=== PATIENT | female | born 1955 | race African-American/Black ===

== ENCOUNTER 2019-10-03 10:08 | Inpatient (IN) | payer MEDICARE, MEDICAID ==
[~2019-10-03] VITALS: Ht 157.5 cm; Wt 81.6 kg
[2019-10-03] MEDS ORDERED: METHYLPREDNISOLONE SOD SUCC 125 MG/2 ML VIAL IV STA (10:36)
[2019-10-03] MEDS ORDERED: IPRATROPIUM BROMIDE (0.02%) 0.5MG/2.5ML NEB HHN STA (10:36)
[2019-10-03] MEDS ORDERED: ALBUTEROL (0.083%) 2.5MG/3ML NEB HHN STA (10:36)
[2019-10-03 11:31] LABS: BG BASE EXCESS -3.8 mmol/L (-2.0-2.0); BG CARBOXYHEMOGLOBIN 0.2 % (0.5-1.5); BG FRACTION INSPIRED OXYGEN 28; BG HCO3 ACT 19.1 mmol/L (22.0-26.0); BG METHEMOGLOBIN 0.1 % (0.0-1.5); BG OXYHEMOGLOBIN 94.7 % (94.0-97.0); BG PCO2 27.8 mmHg (35.0-45.0); BG PH 7.455 (7.350-7.450); BG PO2 70.9 mmHg (75.0-100.0); BG SAMPLE SITE RIGHT RADIAL; BG TOTAL HEMOGLOBIN 10.2 g/dL (12.0-18.0); BG VENT MODE NASAL CANNULA
[2019-10-03 12:24] LABS: BASOPHILS % 0.8 % (0.0-2.0); EOSINOPHILS % 0.9 % (0.0-5.0); HEMATOCRIT. 35.2 % (36.0-48.0); HEMOGLOBIN. 11.3 g/dL (12.0-16.0); LYMPHOCYTES % 23.8 % (20.0-50.0); MEAN CORPUSCULAR HEMOGLOBIN 28.2 pg (28.0-32.0); MEAN CORPUSCULAR VOLUME 88.1 fL (81.0-99.0); MEAN PLATELET VOLUME 8.6 fl (7.4-10.4); MONOCYTES % 12.4 % (2.0-8.0); NEUTROPHILS % 62.1 % (40.0-76.0); PLATELET 200 x1000/uL (130-400); RED CELL DISTRIBUTION WIDTH 18.2 % (11.6-14.6)
[2019-10-03 12:29] LABS: CHLORIDE 111 mEq/L (98-107)
[2019-10-03] MEDS ORDERED: FUROSEMIDE 40MG/4ML VIAL IVP ONE (12:45)
[2019-10-03] MEDS ORDERED: IPRATROPIUM/ALBUTEROL 0.5-3(2.5)MG/3ML NEB HHN PRN (13:45)
[2019-10-03] MEDS ORDERED: ONDANSETRON HCL 4MG/2ML INJ IV PRN (13:45)
[2019-10-03 20:13] VITALS: BP 115/79
[2019-10-03 20:15] VITALS: BP 115/79
[2019-10-03] MEDS: METHYLPREDNISOLONE SOD SUCC 40 MG/ML VIAL IV SCH (23:00)
[2019-10-03] MEDS: ACETAMINOPHEN 325MG TABLET PO PRN (23:00)
[2019-10-03] MEDS ORDERED: DEXTROSE 50% WATER 50ML SYRINGE IV PRN (23:30)
[2019-10-03] MEDS: BLOOD SUGAR DIAGNOSTIC STRIP TEST SCH (23:35)
[2019-10-03] MEDS: INSULIN LISPRO 100 UNITS/ML SUBCUT SCH (23:44)
[2019-10-04] VITALS: BP 118/76
[2019-10-04] MEDS: IPRATROPIUM/ALBUTEROL 0.5-3(2.5)MG/3ML NEB HHN SCH ×6 (01:51→20:52)
[2019-10-04 04:00] VITALS: BP 128/81
[2019-10-04] MEDS: METHYLPREDNISOLONE SOD SUCC 40 MG/ML VIAL IV SCH ×2 (06:33→14:00)
[2019-10-04] MEDS: BLOOD SUGAR DIAGNOSTIC STRIP TEST SCH ×4 (06:33→20:18)
[2019-10-04] MEDS: INSULIN LISPRO 100 UNITS/ML SUBCUT SCH ×4 (06:34→20:32)
[2019-10-04 07:04] LABS: BASOPHILS % 0.2 % (0.0-2.0); HEMOGLOBIN. 10.6 g/dL (12.0-16.0); LYMPHOCYTES % 9.2 % (20.0-50.0); MEAN CORPUSCULAR VOLUME 87.5 fL (81.0-99.0); MEAN PLATELET VOLUME 9.2 fl (7.4-10.4); MONOCYTES % 3.1 % (2.0-8.0); NEUTROPHILS % 87.5 % (40.0-76.0); PLATELET 224 x1000/uL (130-400); RED BLOOD CELL COUNT 3.77 mill/uL (4.2-5.4); RED CELL DISTRIBUTION WIDTH 17.5 % (11.6-14.6)
[2019-10-04 07:15] LABS: CLARITY URINE CLEAR (CLEAR); COLOR URINE YELLOW (YELLOW); KETONES URINE NEGATIVE (NEGATIVE); LEUKOCYTE ESTERASE URINE NEGATIVE (NEGATIVE); NITRITE URINE NEGATIVE (NEGATIVE); OCCULT BLOOD URINE NEGATIVE (NEGATIVE); PROTEIN URINE NEGATIVE (NEGATIVE); SPECIFIC GRAVITY URINE 1.027 (1.005-1.030); UROBILINOGEN URINE 0.2 E.U./dL (0.2-1.0)
[2019-10-04 07:37] LABS: *AMPHETAMINES SCREEN URINE NEGATIVE (NEGATIVE); *BARBITURATES SCREEN URINE NEGATIVE (NEGATIVE); *BENZODIAZEPINES SCREEN URINE NEGATIVE (NEGATIVE); *COCAINE SCREEN URINE NEGATIVE (NEGATIVE)
[2019-10-04 07:38] LABS: CANNABINOID URINE SCREEN NEGATIVE (NEGATIVE); METHADONE URINE SCREEN NEGATIVE (NEGATIVE); OPIATES URINE SCREEN PRESUMTIVE POSITIVE (NEGATIVE); PHENCYCLIDINE URINE SCREEN NEGATIVE (NEGATIVE)
[2019-10-04 08:00] VITALS: BP 137/75
[2019-10-04] MEDS ORDERED: ENOXAPARIN 40MG/0.4ML SYR SUBCUT SCH (09:00)
[2019-10-04] MEDS ORDERED: ASPIRIN 81MG TABLET PO SCH (09:00)
[2019-10-04] MEDS: FUROSEMIDE 40MG/4ML VIAL IVP SCH (09:13)
[2019-10-04 12:14] VITALS: BP 106/64
[2019-10-04] MEDS: DILTIAZEM HCL 30MG TABLET PO SCH ×2 (13:19→22:48)
[2019-10-04] MEDS: APIXABAN 5 MG TABLET PO SCH ×2 (13:29→20:17)
[2019-10-04] MEDS ORDERED: LACTULOSE 20G/30ML UDC PO PRN (14:15)
[2019-10-04] MEDS ORDERED: LORAZEPAM 1MG TABLET PO PRN (14:15)
[2019-10-04 16:01] VITALS: BP 121/85
[2019-10-04] MEDS: ACETAMINOPHEN 325MG TABLET PO PRN (17:17)
[2019-10-04] MEDS ORDERED: GEMF600T5 MT (17:26)
[2019-10-04] MEDS ORDERED: DARU1TAB MT (17:27)
[2019-10-04] MEDS ORDERED: DOLU50TA MT (17:28)
[2019-10-04] MEDS ORDERED: GLIP10TA10 MT (17:29)
[2019-10-04] MEDS ORDERED: OMEP20CA5 MT (17:30)
[2019-10-04] MEDS ORDERED: TOPUD MT (17:33)
[2019-10-04] MEDS ORDERED: APIX5TAB PO (17:34)
[2019-10-04] MEDS ORDERED: FURO40TA5 PO (17:35)
[2019-10-04] MEDS ORDERED: CRES10 PO (17:36)
[2019-10-04] MEDS ORDERED: AMLO10TA80 PO (17:38)
[2019-10-04] MEDS ORDERED: CARV12.545 PO (17:39)
[2019-10-04] MEDS ORDERED: ALBU18HF2 IH (17:42)
[2019-10-04 20:00] VITALS: BP 123/73
[2019-10-04] MEDS: ATORVASTATIN CALCIUM 20MG TABLET PO SCH (20:17)
[2019-10-04] MEDS: HYDROCODONE/ACETAMINOPHEN 5/325MG TABLET PO PRN (20:18)
[2019-10-04] MEDS: COBICISTAT PO SCH (20:19)
[2019-10-04] MEDS: DOLUTEGRAVIR SODIUM PO SCH (20:19)
[2019-10-04] MEDS: DARUNAVIR PO SCH (20:19)
[2019-10-05] VITALS: BP 119/71
[2019-10-05] MEDS: IPRATROPIUM/ALBUTEROL 0.5-3(2.5)MG/3ML NEB HHN SCH ×6 (01:14→20:27)
[2019-10-05 04:00] VITALS: BP 117/73
[2019-10-05] MEDS: DILTIAZEM HCL 30MG TABLET PO SCH ×3 (06:07→21:00)
[2019-10-05] MEDS: BLOOD SUGAR DIAGNOSTIC STRIP TEST SCH ×4 (06:08→20:52)
[2019-10-05] MEDS: INSULIN LISPRO 100 UNITS/ML SUBCUT SCH ×4 (06:20→20:50)
[2019-10-05 08:35] VITALS: BP 116/65
[2019-10-05] MEDS: APIXABAN 5 MG TABLET PO SCH ×2 (08:40→20:58)
[2019-10-05] MEDS: FUROSEMIDE 40MG/4ML VIAL IVP SCH ×2 (08:40→18:11)
[2019-10-05] MEDS: DOLUTEGRAVIR SODIUM PO SCH (08:41)
[2019-10-05] MEDS: PREDNISONE 20MG TABLET PO SCH (08:41)
[2019-10-05] MEDS: DARUNAVIR PO SCH (08:41)
[2019-10-05] MEDS: COBICISTAT PO SCH (08:41)
[2019-10-05 12:10] VITALS: BP 105/55
[2019-10-05 12:19] LABS: ETHANOL BLOOD < 10 mg/dL
[2019-10-05 12:24] LABS: T4 FREE 1.47 ng/dL (0.76-1.46)
[2019-10-05] MEDS ORDERED: POLYETHYLENE GLYCOL-ELECTROLYTE 4000ML PO ONE (13:15)
[2019-10-05 16:00] VITALS: BP 130/83
[2019-10-05 16:49] LABS: HEMATOCRIT. 35.3 % (36.0-48.0); HEMOGLOBIN. 11.1 g/dL (12.0-16.0); MEAN PLATELET VOLUME 9.4 fl (7.4-10.4); PLATELET 281 x1000/uL (130-400); RED BLOOD CELL COUNT 3.97 mill/uL (4.2-5.4); RED CELL DISTRIBUTION WIDTH 18.1 % (11.6-14.6)
[2019-10-05 16:56] LABS: T4 FREE 1.53 ng/dL (0.76-1.46)
[2019-10-05] MEDS ORDERED: IOHEXOL-350 100 ML BOTTLE ONE (16:59)
[2019-10-05 20:00] VITALS: BP 117/75
[2019-10-05] MEDS: ACETYLCYSTEINE 100MG/ML 10% VIAL 4ML INH SCH (20:27)
[2019-10-05] MEDS: HYDROCODONE/ACETAMINOPHEN 5/325MG TABLET PO PRN (20:48)
[2019-10-05] MEDS: CLONAZEPAM 0.5MG TABLET PO SCH (20:48)
[2019-10-05] MEDS: ATORVASTATIN CALCIUM 20MG TABLET PO SCH (20:51)
[2019-10-05 22:55] LABS: PLATELET ESTIMATE NORMAL
[2019-10-06] VITALS: BP 120/63
[2019-10-06] MEDS: IPRATROPIUM/ALBUTEROL 0.5-3(2.5)MG/3ML NEB HHN SCH ×6 (00:56→21:33)
[2019-10-06 04:00] VITALS: BP 116/59
[2019-10-06 04:26] LABS: BASOPHILS % 0.2 % (0.0-2.0); HEMATOCRIT. 32.7 % (36.0-48.0); HEMOGLOBIN. 10.6 g/dL (12.0-16.0); LYMPHOCYTES % 8.9 % (20.0-50.0); MEAN CORPUSCULAR VOLUME 86.7 fL (81.0-99.0); MEAN PLATELET VOLUME 8.8 fl (7.4-10.4); MONOCYTES % 7.1 % (2.0-8.0); NEUTROPHILS % 83.8 % (40.0-76.0); PLATELET 257 x1000/uL (130-400); RED BLOOD CELL COUNT 3.77 mill/uL (4.2-5.4); RED CELL DISTRIBUTION WIDTH 17.9 % (11.6-14.6)
[2019-10-06] MEDS: ACETYLCYSTEINE 100MG/ML 10% VIAL 4ML INH SCH ×3 (04:27→21:34)
[2019-10-06] MEDS: BLOOD SUGAR DIAGNOSTIC STRIP TEST SCH ×4 (05:54→20:48)
[2019-10-06] MEDS: DILTIAZEM HCL 30MG TABLET PO SCH ×3 (06:03→22:00)
[2019-10-06] MEDS: HYDROCODONE/ACETAMINOPHEN 5/325MG TABLET PO PRN ×2 (06:03→20:49)
[2019-10-06 08:00] VITALS: BP 139/74
[2019-10-06] MEDS: APIXABAN 5 MG TABLET PO SCH ×2 (08:17→20:48)
[2019-10-06] MEDS: FUROSEMIDE 40MG/4ML VIAL IVP SCH ×2 (08:17→17:15)
[2019-10-06] MEDS: CLONAZEPAM 0.5MG TABLET PO SCH ×2 (08:17→20:48)
[2019-10-06] MEDS: PREDNISONE 20MG TABLET PO SCH (08:17)
[2019-10-06] MEDS: INSULIN LISPRO 100 UNITS/ML SUBCUT SCH ×4 (08:28→20:52)
[2019-10-06 12:00] VITALS: BP 126/69
[2019-10-06] MEDS: LACTULOSE 20G/30ML UDC PO SCH ×3 (12:20→17:00)
[2019-10-06] MEDS: DARUNAVIR PO SCH (13:48)
[2019-10-06] MEDS: DOLUTEGRAVIR SODIUM PO SCH (13:48)
[2019-10-06] MEDS: COBICISTAT PO SCH (13:48)
[2019-10-06 16:00] VITALS: BP 119/79
[2019-10-06 20:45] VITALS: BP 102/72
[2019-10-06] MEDS: ATORVASTATIN CALCIUM 20MG TABLET PO SCH (20:50)
[2019-10-07 00:33] VITALS: BP 115/69
[2019-10-07] MEDS: IPRATROPIUM/ALBUTEROL 0.5-3(2.5)MG/3ML NEB HHN SCH ×3 (02:07→08:05)
[2019-10-07 04:00] VITALS: BP 124/83
[2019-10-07] MEDS: ACETYLCYSTEINE 100MG/ML 10% VIAL 4ML INH SCH ×2 (05:14→08:05)
[2019-10-07] MEDS: BLOOD SUGAR DIAGNOSTIC STRIP TEST SCH (05:33)
[2019-10-07] MEDS: DILTIAZEM HCL 30MG TABLET PO SCH (05:35)
[2019-10-07] MEDS: FUROSEMIDE 40MG/4ML VIAL IVP SCH (08:25)
[2019-10-07] MEDS: APIXABAN 5 MG TABLET PO SCH (08:26)
[2019-10-07] MEDS: CLONAZEPAM 0.5MG TABLET PO SCH (08:26)
[2019-10-07] MEDS: PREDNISONE 20MG TABLET PO SCH (08:26)
[2019-10-07] MEDS: DARUNAVIR PO SCH (08:27)
[2019-10-07] MEDS: DOLUTEGRAVIR SODIUM PO SCH (08:27)
[2019-10-07] MEDS: COBICISTAT PO SCH (08:27)
[2019-10-07 08:33] VITALS: BP 134/74
[2019-10-07] MEDS: INSULIN LISPRO 100 UNITS/ML SUBCUT SCH (08:38)
== END 2019-10-07 11:30 | DRG 291 ==
LOC: ER 10:08 → 8WST 12:44 → EDBEDREQ 12:49 → CANRESERV 17:23 → ENRESERV 17:23 → 6WST 10-04 23:44
PROVIDERS: ADMIT Internal Medicine Nephrology; ATTEND Internal Medicine Nephrology
DX: I11.0 Hypertensive heart disease with heart failure (principal); J96.21 Acute and chronic respiratory failure with hypoxia; J44.1 Chronic obstructive pulmonary disease with (acute) exacerbation; I48.92 Unspecified atrial flutter; J44.0 Chronic obstructive pulmonary disease with (acute) lower respiratory infection; I50.43 Acute on chronic combined systolic (congestive) and diastolic (congestive) heart failure; E66.9 Obesity, unspecified; I48.0 Paroxysmal atrial fibrillation; E11.65 Type 2 diabetes mellitus with hyperglycemia; D64.9 Anemia, unspecified; G62.9 Polyneuropathy, unspecified; E78.5 Hyperlipidemia, unspecified; E78.1 Pure hyperglyceridemia; E78.00 Pure hypercholesterolemia, unspecified; R26.9 Unspecified abnormalities of gait and mobility; J20.9 Acute bronchitis, unspecified; K59.09 Other constipation; Z99.81 Dependence on supplemental oxygen; Z87.891 Personal history of nicotine dependence; Z79.01 Long term (current) use of anticoagulants; Z71.3 Dietary counseling and surveillance; Z68.32 Body mass index [BMI] 32.0-32.9, adult; Z21 Asymptomatic human immunodeficiency virus [HIV] infection status
CPT/HCPCS: 36415; 36600; 70551; 71045; 71275; 80048; 80061; 80305; 80320; 81003; 82310; 82375; 82390; 82805; 82962; 83735; 83880; 84439; 84443; 84481; 84484; 87804; 93005; 93306; 94640; 96374; 96375; 97162; 97166; 99285; J1650; J1815; J1940; J2920; J2930; J7512; J7608; J7611; J7620; Q9967; G0480

== ENCOUNTER 2019-10-07 11:30 | Inpatient (IN) | payer MEDICARE, MEDICAID ==
[~2019-10-07] VITALS: Ht 157.5 cm; Wt 74.4 kg
[2019-10-07 11:30] VITALS: BP 127/79
[~2019-10-07 11:30] MED LIST: ALBU18HF2 IH; AMLO10TA80 PO; APIX5TAB PO; CARV12.545 PO; CRES10 PO; DARU1TAB MT; DOLU50TA MT; FURO40TA5 PO; GEMF600T5 MT; GLIP10TA10 MT; OMEP20CA5 MT; TOPUD MT
[2019-10-07] MEDS ORDERED: LORAZEPAM 1MG TABLET PO PRN (12:15)
[2019-10-07] MEDS ORDERED: DEXTROSE 50% WATER 50ML SYRINGE IV PRN (12:15)
[2019-10-07] MEDS ORDERED: IPRATROPIUM/ALBUTEROL 0.5-3(2.5)MG/3ML NEB HHN PRN (12:15)
[2019-10-07] MEDS ORDERED: ONDANSETRON 4MG ODT PO PRN (12:15)
[2019-10-07] MEDS ORDERED: LACTULOSE 20G/30ML UDC PO PRN (13:00)
[2019-10-07 13:50] VITALS: BP 116/67
[2019-10-07] MEDS: DILTIAZEM HCL 30MG TABLET PO SCH ×2 (14:18→21:48)
[2019-10-07] MEDS: HYDROCODONE/ACETAMINOPHEN 5/325MG TABLET PO PRN ×2 (15:50→21:55)
[2019-10-07 16:00] VITALS: BP 115/67
[2019-10-07] MEDS ORDERED: IPRATROPIUM/ALBUTEROL 0.5-3(2.5)MG/3ML NEB HHN SCH (16:00)
[2019-10-07] MEDS: BLOOD SUGAR DIAGNOSTIC STRIP TEST SCH ×2 (16:44→20:09)
[2019-10-07] MEDS: INSULIN LISPRO 100 UNITS/ML SUBCUT SCH ×2 (16:44→20:16)
[2019-10-07] MEDS ORDERED: INSULIN LISPRO 100 UNITS/ML SUBCUT NR (17:45)
[2019-10-07] MEDS: BUDESONIDE 0.5MG/2ML NEB HHN SCH (17:56)
[2019-10-07] MEDS: IPRATROPIUM/ALBUTEROL 0.5-3(2.5)MG/3ML NEB HHN SCH ×2 (17:56→20:18)
[2019-10-07 20:00] VITALS: BP 120/69
[2019-10-07] MEDS: ATORVASTATIN CALCIUM 20MG TABLET PO SCH (20:16)
[2019-10-07] MEDS: CLONAZEPAM 0.5MG TABLET PO SCH (20:16)
[2019-10-07] MEDS: APIXABAN 5 MG TABLET PO SCH (20:16)
[2019-10-08] MEDS: ACETYLCYSTEINE 100MG/ML 10% VIAL 4ML INH SCH ×2 (01:21→07:37)
[2019-10-08] MEDS: IPRATROPIUM/ALBUTEROL 0.5-3(2.5)MG/3ML NEB HHN SCH ×4 (01:46→20:56)
[2019-10-08] MEDS: HYDROCODONE/ACETAMINOPHEN 5/325MG TABLET PO PRN ×3 (03:54→20:23)
[2019-10-08] MEDS: DILTIAZEM HCL 30MG TABLET PO SCH ×3 (05:32→21:50)
[2019-10-08] MEDS: BLOOD SUGAR DIAGNOSTIC STRIP TEST SCH ×4 (05:38→21:16)
[2019-10-08] MEDS: FUROSEMIDE 40MG TABLET PO SCH ×2 (06:20→16:36)
[2019-10-08] MEDS: INSULIN LISPRO 100 UNITS/ML SUBCUT SCH ×4 (06:20→21:53)
[2019-10-08 06:54] LABS: CHLORIDE 103 mEq/L (98-107)
[2019-10-08 07:12] LABS: HEMATOCRIT. 33.3 % (36.0-48.0); HEMOGLOBIN. 10.7 g/dL (12.0-16.0); MEAN CORPUSCULAR HEMOGLOBIN 27.8 pg (28.0-32.0); MEAN CORPUSCULAR VOLUME 86.6 fL (81.0-99.0); MEAN PLATELET VOLUME 8.6 fl (7.4-10.4); PLATELET 259 x1000/uL (130-400); RED BLOOD CELL COUNT 3.84 mill/uL (4.2-5.4); RED CELL DISTRIBUTION WIDTH 17.7 % (11.6-14.6)
[2019-10-08] MEDS: BUDESONIDE 0.5MG/2ML NEB HHN SCH ×2 (07:37→20:56)
[2019-10-08 08:20] VITALS: BP 127/71
[2019-10-08] MEDS: APIXABAN 5 MG TABLET PO SCH ×2 (08:28→20:18)
[2019-10-08] MEDS: [UNRECOGNIZED DRUG - REMARK] PO SCH (08:28)
[2019-10-08] MEDS: PREDNISONE 20MG TABLET PO SCH (08:28)
[2019-10-08] MEDS: [UNRECOGNIZED DRUG - REMARK] PO SCH (08:29)
[2019-10-08] MEDS: CLONAZEPAM 0.5MG TABLET PO SCH ×2 (08:29→20:18)
[2019-10-08] MEDS ORDERED: PREDNISONE 20MG TABLET PO SCH (09:00)
[2019-10-08 13:30] VITALS: BP 128/94
[2019-10-08 14:12] LABS: NUCLEATED RED BLOOD CELLS 1 /100 WBC; PLATELET ESTIMATE NORMAL
[2019-10-08 15:19] VITALS: BP 108/49
[2019-10-08 20:00] VITALS: BP 123/73
[2019-10-08] MEDS: ATORVASTATIN CALCIUM 20MG TABLET PO SCH (20:18)
[2019-10-08] MEDS: GUAIFENESIN 600MG ER TABLET PO SCH (20:18)
[2019-10-08] MEDS: INSULIN GLARGINE UD 100 UNITS/ML SYR SUBCUT SCH (21:53)
[2019-10-09] MEDS: IPRATROPIUM/ALBUTEROL 0.5-3(2.5)MG/3ML NEB HHN SCH ×4 (02:23→20:08)
[2019-10-09] MEDS: DILTIAZEM HCL 30MG TABLET PO SCH ×3 (06:24→22:40)
[2019-10-09] MEDS: FUROSEMIDE 40MG TABLET PO SCH ×2 (06:24→16:45)
[2019-10-09] MEDS: BLOOD SUGAR DIAGNOSTIC STRIP TEST SCH ×4 (06:24→21:17)
[2019-10-09] MEDS: INSULIN LISPRO 100 UNITS/ML SUBCUT SCH ×4 (06:37→21:16)
[2019-10-09 07:30] VITALS: BP 126/59
[2019-10-09] MEDS: BUDESONIDE 0.5MG/2ML NEB HHN SCH ×2 (07:47→20:09)
[2019-10-09] MEDS: [UNRECOGNIZED DRUG - REMARK] PO SCH (08:31)
[2019-10-09] MEDS: PREDNISONE 20MG TABLET PO SCH (08:32)
[2019-10-09] MEDS: APIXABAN 5 MG TABLET PO SCH ×2 (08:32→21:08)
[2019-10-09] MEDS: CLONAZEPAM 0.5MG TABLET PO SCH ×2 (08:32→21:08)
[2019-10-09] MEDS: GUAIFENESIN 600MG ER TABLET PO SCH ×2 (08:32→21:08)
[2019-10-09] MEDS: [UNRECOGNIZED DRUG - REMARK] PO SCH (08:32)
[2019-10-09 10:30] VITALS: BP 114/73
[2019-10-09] MEDS: INSULIN GLARGINE UD 100 UNITS/ML SYR SUBCUT SCH ×2 (10:35→22:41)
[2019-10-09] MEDS: OMEPRAZOLE 20MG CAPSULE EXTENDED RELEASE PO SCH (10:42)
[2019-10-09] MEDS: HYDROCODONE/ACETAMINOPHEN 5/325MG TABLET PO PRN ×2 (10:43→20:17)
[2019-10-09 13:15] VITALS: BP 137/65
[2019-10-09] MEDS ORDERED: BISACODYL 5MG TABLET PO NR (14:15)
[2019-10-09] MEDS ORDERED: GADOBENATE DIMEGLUMINE 529 MG/ML 10ML IV ONE (15:51)
[2019-10-09] MEDS: DOCUSATE SODIUM 250MG CAPSULE PO SCH (16:45)
[2019-10-09 20:00] VITALS: BP 125/63
[2019-10-09] MEDS: ATORVASTATIN CALCIUM 20MG TABLET PO SCH (21:08)
[2019-10-10] MEDS: IPRATROPIUM/ALBUTEROL 0.5-3(2.5)MG/3ML NEB HHN SCH ×4 (01:53→21:49)
[2019-10-10] MEDS: OMEPRAZOLE 20MG CAPSULE EXTENDED RELEASE PO SCH (06:33)
[2019-10-10] MEDS: FUROSEMIDE 40MG TABLET PO SCH (06:33)
[2019-10-10] MEDS: DILTIAZEM HCL 30MG TABLET PO SCH ×3 (06:33→22:06)
[2019-10-10] MEDS: BLOOD SUGAR DIAGNOSTIC STRIP TEST SCH ×4 (06:33→21:44)
[2019-10-10 06:56] LABS: HEMATOCRIT. 34.3 % (36.0-48.0); HEMOGLOBIN. 11.1 g/dL (12.0-16.0); MEAN CORPUSCULAR HEMOGLOBIN 28.1 pg (28.0-32.0); MEAN CORPUSCULAR VOLUME 87.1 fL (81.0-99.0); MEAN PLATELET VOLUME 8.7 fl (7.4-10.4); PLATELET 269 x1000/uL (130-400); RED BLOOD CELL COUNT 3.94 mill/uL (4.2-5.4); RED CELL DISTRIBUTION WIDTH 17.6 % (11.6-14.6)
[2019-10-10 07:14] LABS: CHLORIDE 104 mEq/L (98-107)
[2019-10-10] MEDS: INSULIN LISPRO 100 UNITS/ML SUBCUT SCH ×4 (07:20→21:00)
[2019-10-10 07:30] VITALS: BP 110/54
[2019-10-10 07:32] LABS: FOLIC ACID (FOLATE) SERUM 6.9 ng/mL (>5.38)
[2019-10-10 07:45] LABS: LDL CHOLESTEROL 91 mg/dL (5-100)
[2019-10-10 07:46] LABS: CREATINE KINASE 18 IU/L (26-192)
[2019-10-10 07:47] LABS: HDL CHOLESTEROL 91 mg/dL (40-59); TOTAL IRON BINDING CAPACITY 280 ug/dL (250-450)
[2019-10-10 07:49] LABS: T4 FREE 1.16 ng/dL (0.76-1.46)
[2019-10-10] MEDS: APIXABAN 5 MG TABLET PO SCH ×2 (08:35→21:42)
[2019-10-10] MEDS: GUAIFENESIN 600MG ER TABLET PO SCH ×2 (08:35→22:06)
[2019-10-10] MEDS: DOCUSATE SODIUM 250MG CAPSULE PO SCH (08:35)
[2019-10-10] MEDS: PREDNISONE 10MG TABLET PO SCH (08:35)
[2019-10-10] MEDS: [UNRECOGNIZED DRUG - REMARK] PO SCH (08:36)
[2019-10-10] MEDS: [UNRECOGNIZED DRUG - REMARK] PO SCH (08:36)
[2019-10-10 09:10] LABS: ABSOLUTE EOSINOPHILS 0.1 x10E3/uL (0.0-0.4); ABSOLUTE LYMPHOCYTES 2.2 x10E3/uL (0.7-3.1); ABSOLUTE MONOCYTES 0.7 x10E3/uL (0.1-0.9); ABSOLUTE NEUTROPHILS 5.1 x10E3/uL (1.4-7.0); BASOPHILS 0 % (Not Estab.); HEMATOCRIT 35.9 % (34.0-46.6); HEMOGLOBIN 10.9 g/dL (11.1-15.9); IMMATURE GRANULOCYTES 3 % (Not Estab.); IMMATURE GRANULOCYTES ABSOLUTE 0.2 x10E3/uL (0.0-0.1); LYMPHOCYTES 27 % (Not Estab.); MEAN CORPUSCULAR HEMOGLOBIN 27.2 pg (26.6-33.0); MEAN CORPUSCULAR HGB CONC. 30.4 g/dL (31.5-35.7); MEAN CORPUSCULAR VOLUME 90 fL (79-97); MONOCYTES 9 % (Not Estab.); NEUTROPHILS 60 % (Not Estab.); PLATELETS 273 x10E3/uL (150-450); RBC 4.01 x10E6/uL (3.77-5.28); RED CELL DISTRIBUTION WIDTH 16.8 % (12.3-15.4); WBC 8.3 x10E3/uL (3.4-10.8)
[2019-10-10] MEDS: BUDESONIDE 0.5MG/2ML NEB HHN SCH (09:17)
[2019-10-10] MEDS: INSULIN GLARGINE UD 100 UNITS/ML SYR SUBCUT SCH ×2 (10:17→22:07)
[2019-10-10 13:00] VITALS: BP 136/81
[2019-10-10 13:06] LABS: % CD 3 POS. LYMPHOCYTES 80.8 % (57.5-86.2); % CD 8 POS. LYMPH 26.4 % (12.0-35.5); ABSOLUTE CD 3 1778 /uL (622-2402); ABSOLUTE CD 4 HELPER 1188 /uL (359-1519); ABSOLUTE CD 8 SUPPRESSOR 581 /uL (109-897); CD4/CD8 RATIO 2.05 (0.92-3.72)
[2019-10-10] MEDS: ACETAMINOPHEN 325MG TABLET PO PRN (13:20)
[2019-10-10 16:38] LABS: PLATELET ESTIMATE NORMAL
[2019-10-10 18:45] VITALS: BP 116/54
[2019-10-10] MEDS: HYDROCODONE/ACETAMINOPHEN 5/325MG TABLET PO PRN (18:51)
[2019-10-10 20:00] VITALS: BP 124/60
[2019-10-10] MEDS: ATORVASTATIN CALCIUM 20MG TABLET PO SCH (21:41)
[2019-10-10] MEDS: CLONAZEPAM 0.5MG TABLET PO SCH (21:44)
[2019-10-11] MEDS: IPRATROPIUM/ALBUTEROL 0.5-3(2.5)MG/3ML NEB HHN SCH ×4 (01:58→22:11)
[2019-10-11] MEDS: DIPHENHYDRAMINE 25MG CAPSULE PO PRN (02:50)
[2019-10-11] MEDS: DILTIAZEM HCL 30MG TABLET PO SCH ×3 (06:43→21:04)
[2019-10-11] MEDS: FUROSEMIDE 40MG TABLET PO SCH ×2 (06:43→17:14)
[2019-10-11] MEDS: BLOOD SUGAR DIAGNOSTIC STRIP TEST SCH ×4 (06:43→21:04)
[2019-10-11] MEDS: FAMOTIDINE 20MG TABLET PO SCH (06:43)
[2019-10-11] MEDS ORDERED: INSULIN LISPRO 100 UNITS/ML SUBCUT SCH (07:00)
[2019-10-11 07:07] LABS: FOLICLE STIMULATING HORMONE 60.3 mIU/mL (.); LUTEINIZING HORMONE 34.8 mIU/mL (.)
[2019-10-11 08:04] VITALS: BP 115/62
[2019-10-11] MEDS: INSULIN LISPRO 100 UNITS/ML SUBCUT SCH ×3 (08:33→17:22)
[2019-10-11] MEDS: INSULIN LISPRO (LOW DOSE) 100 UNITS/ML SUBCUT SCH ×3 (09:00→17:21)
[2019-10-11] MEDS: PREDNISONE 10MG TABLET PO SCH (09:00)
[2019-10-11] MEDS: DOCUSATE SODIUM 250MG CAPSULE PO SCH (09:00)
[2019-10-11] MEDS: GUAIFENESIN 600MG ER TABLET PO SCH ×2 (09:00→21:03)
[2019-10-11] MEDS: [UNRECOGNIZED DRUG - REMARK] PO SCH (09:00)
[2019-10-11] MEDS: [UNRECOGNIZED DRUG - REMARK] PO SCH (09:00)
[2019-10-11] MEDS: INSULIN GLARGINE UD 100 UNITS/ML SYR SUBCUT SCH ×2 (09:04→22:08)
[2019-10-11] MEDS: APIXABAN 5 MG TABLET PO SCH ×2 (12:38→21:03)
[2019-10-11] MEDS: HYDROCODONE/ACETAMINOPHEN 5/325MG TABLET PO PRN ×2 (13:10→22:08)
[2019-10-11] MEDS: ACETAMINOPHEN 325MG TABLET PO PRN (18:19)
[2019-10-11 20:00] VITALS: BP 132/73
[2019-10-11] MEDS: CLONAZEPAM 0.5MG TABLET PO SCH (21:03)
[2019-10-12] MEDS: IPRATROPIUM/ALBUTEROL 0.5-3(2.5)MG/3ML NEB HHN SCH ×4 (04:00→20:51)
[2019-10-12] MEDS: FAMOTIDINE 20MG TABLET PO SCH (06:26)
[2019-10-12] MEDS: BLOOD SUGAR DIAGNOSTIC STRIP TEST SCH ×4 (06:26→21:14)
[2019-10-12] MEDS: DILTIAZEM HCL 30MG TABLET PO SCH ×3 (06:26→21:14)
[2019-10-12] MEDS: FUROSEMIDE 40MG TABLET PO SCH ×2 (06:26→17:19)
[2019-10-12] MEDS: INSULIN LISPRO 100 UNITS/ML SUBCUT SCH ×3 (06:43→17:24)
[2019-10-12] MEDS: INSULIN LISPRO (LOW DOSE) 100 UNITS/ML SUBCUT SCH ×3 (06:44→17:24)
[2019-10-12 08:23] VITALS: BP 128/75
[2019-10-12] MEDS: PREDNISONE 10MG TABLET PO SCH (08:44)
[2019-10-12] MEDS: APIXABAN 5 MG TABLET PO SCH ×2 (08:44→21:13)
[2019-10-12] MEDS: GUAIFENESIN 600MG ER TABLET PO SCH ×2 (08:44→21:14)
[2019-10-12] MEDS: [UNRECOGNIZED DRUG - REMARK] PO SCH (08:44)
[2019-10-12] MEDS: DOCUSATE SODIUM 250MG CAPSULE PO SCH (08:44)
[2019-10-12] MEDS: [UNRECOGNIZED DRUG - REMARK] PO SCH (08:44)
[2019-10-12] MEDS: HYDROCODONE/ACETAMINOPHEN 5/325MG TABLET PO PRN ×2 (10:01→22:15)
[2019-10-12] MEDS: INSULIN GLARGINE UD 100 UNITS/ML SYR SUBCUT SCH ×2 (10:01→21:41)
[2019-10-12 20:00] VITALS: BP 134/72
[2019-10-12] MEDS: CLONAZEPAM 0.5MG TABLET PO SCH (21:14)
[2019-10-13] MEDS: IPRATROPIUM/ALBUTEROL 0.5-3(2.5)MG/3ML NEB HHN SCH ×4 (02:18→20:27)
[2019-10-13] MEDS: FAMOTIDINE 20MG TABLET PO SCH (05:56)
[2019-10-13] MEDS: DIPHENHYDRAMINE 25MG CAPSULE PO PRN ×2 (05:56→18:19)
[2019-10-13] MEDS: DILTIAZEM HCL 30MG TABLET PO SCH ×3 (05:56→21:10)
[2019-10-13] MEDS: BLOOD SUGAR DIAGNOSTIC STRIP TEST SCH ×4 (05:56→21:10)
[2019-10-13] MEDS: FUROSEMIDE 40MG TABLET PO SCH ×2 (05:57→16:24)
[2019-10-13 08:11] VITALS: BP 128/80
[2019-10-13] MEDS: GUAIFENESIN 600MG ER TABLET PO SCH ×2 (08:22→21:10)
[2019-10-13] MEDS: PREDNISONE 10MG TABLET PO SCH (08:22)
[2019-10-13] MEDS: APIXABAN 5 MG TABLET PO SCH ×2 (08:22→21:10)
[2019-10-13] MEDS: DOCUSATE SODIUM 250MG CAPSULE PO SCH (08:22)
[2019-10-13] MEDS: [UNRECOGNIZED DRUG - REMARK] PO SCH (08:23)
[2019-10-13] MEDS: [UNRECOGNIZED DRUG - REMARK] PO SCH (08:23)
[2019-10-13] MEDS: INSULIN LISPRO 100 UNITS/ML SUBCUT SCH ×3 (09:34→17:46)
[2019-10-13] MEDS: INSULIN LISPRO (LOW DOSE) 100 UNITS/ML SUBCUT SCH ×3 (09:34→17:45)
[2019-10-13] MEDS: INSULIN GLARGINE UD 100 UNITS/ML SYR SUBCUT SCH ×2 (09:35→21:53)
[2019-10-13 12:34] VITALS: BP 112/55
[2019-10-13] MEDS: HYDROCODONE/ACETAMINOPHEN 5/325MG TABLET PO PRN (12:39)
[2019-10-13 20:00] VITALS: BP 133/76
[2019-10-13] MEDS: CLONAZEPAM 0.5MG TABLET PO SCH (21:10)
[2019-10-14] MEDS: DIPHENHYDRAMINE 25MG CAPSULE PO PRN ×3 (01:15→22:24)
[2019-10-14] MEDS: IPRATROPIUM/ALBUTEROL 0.5-3(2.5)MG/3ML NEB HHN SCH ×4 (01:21→21:41)
[2019-10-14] MEDS: FUROSEMIDE 40MG TABLET PO SCH ×2 (06:10→16:23)
[2019-10-14] MEDS: BLOOD SUGAR DIAGNOSTIC STRIP TEST SCH ×4 (06:11→22:00)
[2019-10-14] MEDS: FAMOTIDINE 20MG TABLET PO SCH (06:11)
[2019-10-14] MEDS: DILTIAZEM HCL 30MG TABLET PO SCH ×3 (06:11→22:19)
[2019-10-14 08:00] VITALS: BP 126/70
[2019-10-14] MEDS: PREDNISONE 10MG TABLET PO SCH (08:09)
[2019-10-14] MEDS: GUAIFENESIN 600MG ER TABLET PO SCH ×2 (08:09→22:20)
[2019-10-14] MEDS: DOCUSATE SODIUM 250MG CAPSULE PO SCH (08:09)
[2019-10-14] MEDS: APIXABAN 5 MG TABLET PO SCH ×2 (08:09→22:19)
[2019-10-14] MEDS: [UNRECOGNIZED DRUG - REMARK] PO SCH (08:11)
[2019-10-14] MEDS: [UNRECOGNIZED DRUG - REMARK] PO SCH (08:11)
[2019-10-14] MEDS: INSULIN LISPRO 100 UNITS/ML SUBCUT SCH ×3 (08:16→17:14)
[2019-10-14] MEDS: INSULIN LISPRO (LOW DOSE) 100 UNITS/ML SUBCUT SCH ×3 (08:17→17:14)
[2019-10-14] MEDS: INSULIN GLARGINE UD 100 UNITS/ML SYR SUBCUT SCH ×2 (09:42→22:38)
[2019-10-14] MEDS ORDERED: LACTULOSE 20G/30ML UDC PO SCH (11:00)
[2019-10-14 11:37] VITALS: BP 114/68
[2019-10-14] MEDS: HYDROCODONE/ACETAMINOPHEN 5/325MG TABLET PO PRN (11:39)
[2019-10-14] MEDS ORDERED: POLYETHYLENE GLYCOL 3350 (17GM) 1 DOSE PACK PO NR (15:45)
[2019-10-14] MEDS ORDERED: MAGNESIUM/ALUMINUM HYDROXIDE/SIMETHICONE 30ML UDC PO NR (17:30)
[2019-10-14 20:00] VITALS: BP 117/75
[2019-10-14] MEDS: CLONAZEPAM 0.5MG TABLET PO SCH (22:19)
[2019-10-15] MEDS: IPRATROPIUM/ALBUTEROL 0.5-3(2.5)MG/3ML NEB HHN SCH ×4 (02:51→16:44)
[2019-10-15] MEDS: FUROSEMIDE 40MG TABLET PO SCH ×2 (06:33→17:22)
[2019-10-15] MEDS: DILTIAZEM HCL 30MG TABLET PO SCH ×2 (06:33→14:29)
[2019-10-15] MEDS: BLOOD SUGAR DIAGNOSTIC STRIP TEST SCH ×3 (06:33→17:00)
[2019-10-15] MEDS: FAMOTIDINE 20MG TABLET PO SCH (06:33)
[2019-10-15 07:43] LABS: HEMATOCRIT. 33.3 % (36.0-48.0); HEMOGLOBIN. 11.1 g/dL (12.0-16.0); MEAN CORPUSCULAR HEMOGLOBIN 28.7 pg (28.0-32.0); MEAN CORPUSCULAR VOLUME 86.1 fL (81.0-99.0); MEAN PLATELET VOLUME 8.7 fl (7.4-10.4); PLATELET 258 x1000/uL (130-400); RED BLOOD CELL COUNT 3.87 mill/uL (4.2-5.4); RED CELL DISTRIBUTION WIDTH 17.4 % (11.6-14.6)
[2019-10-15] MEDS: INSULIN LISPRO 100 UNITS/ML SUBCUT SCH ×3 (07:56→17:25)
[2019-10-15 08:15] VITALS: BP 107/57
[2019-10-15 08:49] LABS: T4 FREE 1.13 ng/dL (0.76-1.46)
[2019-10-15] MEDS: INSULIN LISPRO (LOW DOSE) 100 UNITS/ML SUBCUT SCH ×3 (09:00→17:25)
[2019-10-15] MEDS: GUAIFENESIN 600MG ER TABLET PO SCH (09:10)
[2019-10-15] MEDS: APIXABAN 5 MG TABLET PO SCH (09:10)
[2019-10-15] MEDS: PREDNISONE 10MG TABLET PO SCH (09:11)
[2019-10-15] MEDS: [UNRECOGNIZED DRUG - REMARK] PO SCH (09:11)
[2019-10-15] MEDS: [UNRECOGNIZED DRUG - REMARK] PO SCH (09:11)
[2019-10-15] MEDS: DOCUSATE SODIUM 250MG CAPSULE PO SCH (09:11)
[2019-10-15] MEDS: INSULIN GLARGINE UD 100 UNITS/ML SYR SUBCUT SCH (10:18)
[2019-10-15] MEDS: HYDROCODONE/ACETAMINOPHEN 5/325MG TABLET PO PRN (12:40)
[2019-10-15 12:47] VITALS: BP 140/82
[2019-10-15 12:47] LABS: PLATELET ESTIMATE NORMAL
[2019-10-16 07:53] LABS: 25-HYDROXY VITAMIN D3 9.4 ng/mL (.)
[2019-10-16] MEDS ORDERED: PREDNISONE 5MG TABLET PO SCH (09:00)
[2019-10-16 09:07] LABS: HIV 1 ABS Positive (Negative); HIV 2 ABS Negative (Negative); HIV SCREEN 4G Reactive (Non Reactive); INTERPRETATION HIV-1 Positive (.)
== END 2019-10-15 17:45 | DRG 190 ==
PROVIDERS: ADMIT Physical Medicine & Rehabilitation Spinal Cord Injury Medicine; ATTEND Internal Medicine Nephrology
DX: J44.1 Chronic obstructive pulmonary disease with (acute) exacerbation (principal); I50.43 Acute on chronic combined systolic (congestive) and diastolic (congestive) heart failure; J96.21 Acute and chronic respiratory failure with hypoxia; I42.9 Cardiomyopathy, unspecified; I48.92 Unspecified atrial flutter; J98.11 Atelectasis; E11.65 Type 2 diabetes mellitus with hyperglycemia; Z99.81 Dependence on supplemental oxygen; Z79.01 Long term (current) use of anticoagulants; D64.9 Anemia, unspecified; E05.90 Thyrotoxicosis, unspecified without thyrotoxic crisis or storm; E66.9 Obesity, unspecified; E78.00 Pure hypercholesterolemia, unspecified; E78.1 Pure hyperglyceridemia; E78.5 Hyperlipidemia, unspecified; F17.210 Nicotine dependence, cigarettes, uncomplicated; E11.42 Type 2 diabetes mellitus with diabetic polyneuropathy; I11.0 Hypertensive heart disease with heart failure; I48.0 Paroxysmal atrial fibrillation; R13.10 Dysphagia, unspecified; Z68.30 Body mass index [BMI] 30.0-30.9, adult
CPT/HCPCS: 36415; 70553; 72141; 72146; 72148; 80048; 80061; 82140; 82306; 82550; 82607; 82728; 82746; 82962; 83001; 83002; 83036; 83520; 83540; 83550; 83735; 84100; 84134; 84146; 84439; 84443; 84481; 86359; 86360; 86701; 86702; 87389; 92523; 92610; 93970; 97110; 97116; 97162; 97167; 97530; 97535; A9577; G0515; J1815; J7512; J7608; J7620; J7626; Q0163